=== PATIENT | female | born 1950 | race Caucasian/White ===

== ENCOUNTER 2023-12-28 21:25 | Emergency (ER) | payer SELFPAY ==
[2023-12-29] MEDS ORDERED: MORPHINE SULFATE 4 MG/ML SYRINGE ONE (00:57)
--- NOTE | 2024-01-30 12:28 | XR ---
Patient Meghan Blake ID [id number] Order # EXAMINATION TYPE: XR femur RT DATE OF EXAM: 12/29/2023 COMPARISON: No comparison available on downtime PACS. HISTORY: Right thigh pain TECHNIQUE: 2 view right femur FINDINGS: Femoral head articulates with the acetabulum. May be mild right hip joint space narrowing N arrowing of the knee joint spaces is present. No acute fracture or dislocation is evident. Vascular calcification is evident. No joint effusion is evident. Follow up exams can be performed 7-10 days from acute trauma for continued pain. IMPRESSION: 1. No acute osseous abnormality right femur.
== END 2023-12-29 02:10 | disposition home or self-care (01) ==
LOC: EC 21:25
DX: M79.604 Pain in right leg (principal)
CPT/HCPCS: 96372; 99283